=== PATIENT | male | born 2000 | race Two or more races ===

== ENCOUNTER 2022-11-08 11:11 | Emergency (ER) | payer BC ==
[~2022-11-08] VITALS: Ht 180.3 cm; Wt 111.8 kg
[2022-11-08 12:34] VITALS: BP 118/87
== END 2022-11-08 12:35 | disposition home or self-care (01) ==
LOC: ER 11:11
DX: S93.491D Sprain of other ligament of right ankle, subsequent encounter (principal); X58.XXXD Exposure to other specified factors, subsequent encounter
CPT/HCPCS: 73610; 99283